=== PATIENT | male | born 1975 | race Caucasian/White ===

== ENCOUNTER 2017-03-04 00:18 | Emergency (ER) | payer SELFPAY ==
--- NOTE | 2017-03-04 00:28 | NUR ---
CALLED FOR TRIAGE STATES "I WILL F/U WIT A DENTIST". NO S/S OF DISTRESS NOTED AT THIS TIME.
== END 2017-03-04 00:31 | disposition left against medical advice (07) ==
LOC: ER 00:25
DX: Z53.21 Procedure and treatment not carried out due to patient leaving prior to being seen by health care provider (principal)